=== PATIENT | female | born 1950 | race Caucasian/White ===

== ENCOUNTER 2016-12-07 11:34 | Inpatient (IN) | payer OTHER ==
[~2016-12-07] VITALS: Ht 162.6 cm; Wt 59.9 kg
[2016-12-07 11:34] VITALS: BP_SYST 157
[2016-12-07] MEDS ORDERED: ALBUTEROL SULFATE 0.083% 2.5 MG/3 ML VIAL.NEB INH ONE ×2 (11:59→12:00)
[2016-12-07] MEDS ORDERED: IPRATROPIUM BROM 0.5 MG/2.5 ML VIAL.NEB (ATROVENT) INH ONE ×2 (11:59→12:00)
[2016-12-07] MEDS ORDERED: methylPREDNISolone SOD SUCC/PF 62.5 MG/ML VIAL IVP ONE (12:00)
[2016-12-07 12:11] LABS: BLOOD GAS PH 7.434 (7.350-7.450)
[2016-12-07 12:12] LABS: ABG TOTAL HEMOGLOBIN 15.1 G/dL (12.0-18.0); BLOOD GAS COHb% 1.9 % (0.5-1.5); BLOOD GAS HHB 5.8 % (0.0-6.0); BLOOD O2Hb% 92.3 % (94.0-97.0)
[2016-12-07 12:16] LABS: HEMOGLOBIN 14.6 g/dL (12.0-16.0)
[2016-12-07 12:19] LABS: CALCIUM 9.1 mg/dL (8.4-11.0); CREATININE 0.9 mg/dL (0.55-1.30); MEAN CORPUSCULAR HEMOGLOBIN 30 pg (27-31); MEAN CORPUSCULAR HGB CONC 33 % (32-36); MEAN CORPUSCULAR VOLUME 90 fL (79.0-98.0); PLATELET COUNT (AUTO) 278 K/uL (130-430); POTASSIUM 3.5 mmol/L (3.5-5.1); RED CELL DISTRIBUTION WIDTH 12.5 % (9.0-15.0); WHITE BLOOD COUNT (AUTO) 16.7 K/uL (4.8-10.8)
[2016-12-07 12:23] LABS: INR 0.9 (0.8-1.2); PROTHROMBIN TIME 10.2 SECS (9.5-12.5)
[2016-12-07 12:24] LABS: ALBUMIN 4.2 g/dL (3.4-4.8); TOTAL BILIRUBIN 0.8 mg/dL (0.0-1.0); TOTAL PROTEIN, SERUM 7.7 g/dL (6.4-8.3)
[2016-12-07] MEDS ORDERED: LORazepam 2 MG/ML VIAL (FOR ER USE) IVP ONE (12:30)
[2016-12-07] MEDS ORDERED: AZITHROMYCIN 500 MG in NS 250 ML IV ONE (12:45)
[2016-12-07] MEDS ORDERED: NACL 0.9% 1,000 ML IV ONE ×2 (12:45→13:30)
[2016-12-07] MEDS ORDERED: cefTRIAXone 1 GM IVPB PREMIX 50 ML IV ONE (12:45)
[2016-12-07 13:20] LABS: BAND % (MANUAL) 5 % (0-6)
[2016-12-07] MEDS ORDERED: AZITHROMYCIN 500 MG/VIAL (ZITHROMAX) IV ONE (13:20)
[2016-12-07 13:21] LABS: ATYPICAL LYMPHOCYTES % 0 % (0-0); LYMPHOCYTES % (MANUAL) 4 % (20-46); MONOCYTES % (MANUAL) 8 % (0-11)
[2016-12-07 13:24] LABS: BASOPHILS % (MANUAL) 0 % (0-2); EOSINOPHILS % (MANUAL) 0 % (0-7)
[2016-12-07 15:21] VITALS: BP_SYST 133
[2016-12-07 16:32] VITALS: BP_SYST 155
[2016-12-07] MEDS ORDERED: POTA-118 PO (21:08)
[2016-12-07] MEDS ORDERED: HYDR50TA3 PO (21:08)
[2016-12-07] MEDS: ACETAMINOPHEN 325 MG TABLET PO PRN (23:15)
[2016-12-07 23:52] VITALS: BP_SYST 148
[2016-12-08 04:00] VITALS: BP_SYST 131
[2016-12-08 06:31] LABS: HEMATOCRIT 36.5 % (36-48); HEMOGLOBIN 12.4 g/dL (12.0-16.0); LYMPHOCYTES # (AUTO) 1.1 K/uL (1.0-5.5); LYMPHOCYTES % (AUTO) 5.3 % (20.5-51.5); MEAN CORPUSCULAR HEMOGLOBIN 31 pg (27-31); MEAN CORPUSCULAR HGB CONC 34 % (32-36); MEAN CORPUSCULAR VOLUME 91 fL (79.0-98.0); MONOCYTES # (AUTO) 1.2 K/uL (0.0-1.0); MONOCYTES % (AUTO) 5.8 % (1.7-9.3); NEUTROPHILS # (AUTO) 17.7 K/uL (1.8-7.7); PLATELET COUNT (AUTO) 235 K/uL (130-430); RED BLOOD CELL COUNT(AUTO) 4.02 MIL/uL (4.2-6.2); RED CELL DISTRIBUTION WIDTH 12.8 % (9.0-15.0)
[2016-12-08 06:46] LABS: CALCIUM 8.7 mg/dL (8.4-11.0); CREATININE 0.59 mg/dL (0.55-1.30); POTASSIUM 3.8 mmol/L (3.5-5.1); TOTAL BILIRUBIN 0.4 mg/dL (0.0-1.0); TOTAL PROTEIN, SERUM 6.2 g/dL (6.4-8.3)
[2016-12-08 07:59] LABS: ERYTHROCYTE SEDIMENTATION RATE 10 MM/HR (0-20)
[2016-12-08 08:00] VITALS: BP_SYST 139
[2016-12-08 08:22] LABS: NEUTROPHILS % (AUTO) 88.9 % (40.0-70.0)
[2016-12-08] MEDS ORDERED: cefTRIAXone 1 GM in D5W 50 ML IV SCH (09:00)
[2016-12-08] MEDS: AZITHROMYCIN 500 MG in NS 250 ML IV SCH (09:00)
[2016-12-08 09:05] VITALS: BP_SYST 131
[2016-12-08] MEDS: IPRATROPIUM/ALBUTEROL SULFATE 3 ML AMPUL.NEB INH PRN ×2 (09:05→15:31)
[2016-12-08 12:43] VITALS: BP_SYST 144
[2016-12-08] MEDS ORDERED: ACETAMINOPHEN 325 MG TABLET PO PRN (16:30)
[2016-12-08] MEDS ORDERED: TEMAZEPAM 15 MG CAPSULE PO PRN (16:30)
[2016-12-08] MEDS: LORazepam 1 MG TABLET PO PRN (16:39)
[2016-12-08 17:43] VITALS: BP_SYST 156
[2016-12-08] MEDS: PIPERACILLIN/TAZO 3.375/DEX-IS 50 ML IV SCH (20:19)
[2016-12-08 20:48] VITALS: BP_SYST 148
[2016-12-08] MEDS: FLUCONAZOLE 200 mg/ NS 100 ML IV SCH (21:21)
[2016-12-08] MEDS: ACETAMINOPHEN 325 MG TABLET PO PRN (22:37)
[2016-12-09] VITALS (7 sets, daily range): BP systolic 129–160
[2016-12-09 00:39] LABS: BILIRUBIN,URINE NEGATIVE (NEGATIVE); BLOOD, URINE NEGATIVE (NEGATIVE); CLARITY/URINE CLEAR (CLEAR); GLUCOSE,URINE NEGATIVE (NEGATIVE); KETONES,URINE NEGATIVE (NEGATIVE); LEUKOCYTE ESTERASE ,URINE NEGATIVE (NEGATIVE); NITRITE, URINE NEGATIVE (NEGATIVE); PROTEIN URINE NEGATIVE (NEGATIVE); UROBILINOGEN,URINE 0.2 (0.2-1.0)
[2016-12-09] MEDS: LORazepam 1 MG TABLET PO PRN ×3 (00:40→21:27)
[2016-12-09] MEDS: PIPERACILLIN/TAZO 3.375/DEX-IS 50 ML IV SCH ×2 (00:41→05:39)
[2016-12-09 00:50] LABS: COLOR,URINE STRAW (YELLOW)
[2016-12-09 07:34] LABS: CALCIUM 8.8 mg/dL (8.4-11.0); CREATININE 0.58 mg/dL (0.55-1.30); POTASSIUM 3.7 mmol/L (3.5-5.1)
[2016-12-09 07:40] LABS: BASOPHILS % (AUTO) 0.3 % (0.0-2.0); EOSINOPHILS # (AUTO) 0.1 K/uL (0.0-0.4); EOSINOPHILS % (AUTO) 0.9 % (0.0-4.0); HEMATOCRIT 38.8 % (36-48); HEMOGLOBIN 13.3 g/dL (12.0-16.0); LYMPHOCYTES # (AUTO) 1.7 K/uL (1.0-5.5); LYMPHOCYTES % (AUTO) 12.7 % (20.5-51.5); MEAN CORPUSCULAR HEMOGLOBIN 31 pg (27-31); MEAN CORPUSCULAR HGB CONC 34 % (32-36); MEAN CORPUSCULAR VOLUME 90 fL (79.0-98.0); MONOCYTES # (AUTO) 1.1 K/uL (0.0-1.0); MONOCYTES % (AUTO) 8.3 % (1.7-9.3); NEUTROPHILS # (AUTO) 10.9 K/uL (1.8-7.7); NEUTROPHILS % (AUTO) 77.8 % (40.0-70.0); PLATELET COUNT (AUTO) 264 K/uL (130-430); WHITE BLOOD COUNT (AUTO) 13.8 K/uL (4.8-10.8)
[2016-12-09] MEDS: AZITHROMYCIN 500 MG in NS 250 ML IV SCH (08:52)
[2016-12-09 09:50] LABS: ERYTHROCYTE SEDIMENTATION RATE 19 MM/HR (0-20)
[2016-12-09] MEDS ORDERED: MAGNESIUM SULFATE 50 ML IV ONE (12:15)
[2016-12-09] MEDS: methylPREDNISolone SOD SUCC 40 MG/ML VIAL IVP SCH ×2 (14:26→21:19)
[2016-12-09] MEDS: FLUCONAZOLE 200 mg/ NS 100 ML IV SCH (17:06)
[2016-12-09] MEDS: guaiFENesin ER 600 MG TAB PO SCH (21:20)
[2016-12-10 03:41] VITALS: BP_SYST 132
[2016-12-10] MEDS: methylPREDNISolone SOD SUCC 40 MG/ML VIAL IVP SCH (05:54)
[2016-12-10 08:19] VITALS: BP_SYST 157
[2016-12-10] MEDS: guaiFENesin ER 600 MG TAB PO SCH ×2 (08:46→21:12)
[2016-12-10] MEDS: AZITHROMYCIN 500 MG in NS 250 ML IV SCH (08:46)
[2016-12-10] MEDS: LORazepam 1 MG TABLET PO PRN ×2 (09:06→18:38)
[2016-12-10] MEDS ORDERED: CARVEDILOL 3.125 MG TABLET (COREG) PO ONE (11:30)
[2016-12-10 11:32] VITALS: BP_SYST 154
[2016-12-10] MEDS: IPRATROPIUM/ALBUTEROL SULFATE 3 ML AMPUL.NEB INH PRN (13:07)
[2016-12-10 15:38] VITALS: BP_SYST 155
[2016-12-10] MEDS: FLUCONAZOLE 200 mg/ NS 100 ML IV SCH (17:59)
[2016-12-10 20:00] VITALS: BP_SYST 157
[2016-12-10] MEDS: CARVEDILOL 3.125 MG TABLET (COREG) PO SCH (21:12)
[2016-12-10] MEDS: PREDNISONE 20 MG TABLET PO SCH (21:12)
[2016-12-11] VITALS (9 sets, daily range): BP systolic 138–169
[2016-12-11] MEDS: LORazepam 1 MG TABLET PO PRN ×2 (01:39→21:35)
[2016-12-11] MEDS: guaiFENesin ER 600 MG TAB PO SCH ×2 (09:20→21:35)
[2016-12-11] MEDS: CARVEDILOL 3.125 MG TABLET (COREG) PO SCH (09:20)
[2016-12-11] MEDS: PREDNISONE 20 MG TABLET PO SCH (09:20)
[2016-12-11] MEDS: AZITHROMYCIN 500 MG in NS 250 ML IV SCH (09:48)
[2016-12-11] MEDS: IPRATROPIUM/ALBUTEROL SULFATE 3 ML AMPUL.NEB INH PRN (11:18)
[2016-12-11] MEDS ORDERED: LORATADINE 10 MG TABLET PO ONE (14:30)
[2016-12-11] MEDS ORDERED: cloNIDine HCL 0.1 MG TABLET PO PRN (14:45)
[2016-12-11] MEDS: FLUCONAZOLE 200 mg/ NS 100 ML IV SCH (17:25)
[2016-12-11] MEDS ORDERED: MONTELUKAST 10 MG TABLET PO SCH (18:00)
[2016-12-11] MEDS: CARVEDILOL 6.25 MG TABLET (COREG) PO SCH (21:34)
[2016-12-12 07:30] VITALS: BP_SYST 157
[2016-12-12] MEDS ORDERED: PREDNISONE 20 MG TABLET PO SCH (09:00)
[2016-12-12] MEDS ORDERED: LORATADINE 10 MG TABLET PO SCH (09:00)
[2016-12-12] MEDS: AZITHROMYCIN 500 MG in NS 250 ML IV SCH (09:02)
[2016-12-12] MEDS: guaiFENesin ER 600 MG TAB PO SCH (09:03)
[2016-12-12] MEDS: CARVEDILOL 6.25 MG TABLET (COREG) PO SCH (09:04)
[2016-12-12] MEDS: IPRATROPIUM/ALBUTEROL SULFATE 3 ML AMPUL.NEB INH PRN (10:28)
[2016-12-12 10:30] VITALS: BP_SYST 157
[2016-12-12 12:44] VITALS: BP_SYST 159
[2016-12-12] MEDS ORDERED: CARVEDILOL 12.5 MG TABLET (COREG) PO ONE (15:00)
[2016-12-12 15:33] VITALS: BP_SYST 156
[2016-12-12 16:58] VITALS: BP_SYST 156
[2016-12-12] MEDS ORDERED: CARVEDILOL 6.25 MG TABLET (COREG) PO SCH (21:00)
== END 2016-12-12 16:55 | disposition home or self-care (01) | DRG 871 ==
LOC: SED 11:34 → STU 13:18 → SMU 12-09 17:05
PROVIDERS: ADMIT Internal Medicine; ATTEND Internal Medicine
DX: A41.9 Sepsis, unspecified organism (principal); J18.9 Pneumonia, unspecified organism; J44.0 Chronic obstructive pulmonary disease with (acute) lower respiratory infection; J44.1 Chronic obstructive pulmonary disease with (acute) exacerbation; B38.0 Acute pulmonary coccidioidomycosis; I10 Essential (primary) hypertension; J20.9 Acute bronchitis, unspecified; F41.9 Anxiety disorder, unspecified; I77.810 Thoracic aortic ectasia; Z88.6 Allergy status to analgesic agent; Z88.8 Allergy status to other drugs, medicaments and biological substances; Z85.3 Personal history of malignant neoplasm of breast; Z79.899 Other long term (current) drug therapy; Z87.891 Personal history of nicotine dependence
CPT/HCPCS: 36415; 36600; 71010; 71250-TC; 80048; 80053; 81003; 82306; 82803-TC; 82962; 83605; 83880; 84484; 85007; 85025; 85027; 85610-TC; 85651-TC; 85730-TC; 86635; 86738; 87040-TC; 87086; 87101; 87449; 93005; 94640; 94760; 96365; 96375; 99291; J0456; J0696; J1030; J1450; J2060; J2543; J2930; J3475; J7030; J7050; J7060; J7512